=== PATIENT | female | born 2000 | race Caucasian/White ===

== ENCOUNTER 2019-04-14 08:00 | Inpatient (IN) ==
[2019-04-14] MEDS ORDERED: Famotidine 20 MG/2 ML VIAL IVP PRN (08:23)
[2019-04-14] MEDS ORDERED: *HR* Nalbuphine 10 MG/ML AMPUL IVP PRN (08:23)
[2019-04-14] MEDS ORDERED: Metoclopramide 10 MG/2 ML VIAL IVP PRN (08:23)
[2019-04-14] MEDS ORDERED: Ondansetron 4 MG/2 ML VIAL IVP PRN (08:23)
[2019-04-14] MEDS ORDERED: Naloxone 0.4 MG/ML INJ IVP PRN (08:23)
[2019-04-14] MEDS ORDERED: Oxytocin 20 units/ LR 1000 mL 20 UNIT/1,000 ML BAG IVC SCH ×2 (08:30→21:03)
[2019-04-14 08:53] LABS: Basophils % 0.4 %; Eosinophils # 0.1 K/mcL (0.0-0.6); Eosinophils % 0.9 %; Hematocrit 36.8 % (35.3-44.9); Hemoglobin 12.5 g/dL (11.5-15.4); Immature Granulocytes % 0.4 % (0-4); Lymphocytes # 1.5 K/mcL (0.6-4.6); Lymphocytes % 26.8 %; Mean Corpuscular Hemoglobin 30.2 pg (28.0-33.3); Mean Corpuscular Volume 88.9 fL (83.0-100.0); Mean Platelet Volume 10.1 fL (9.4-12.4); Monocytes # 0.4 K/mcL (0.0-1.3); Monocytes % 7.5 %; Neutrophils # 3.6 K/mcL (1.6-8.9); Platelet Count 243 K/mcL (140-400); Red Blood Count 4.14 M/mcL (3.82-4.97); Red Cell Distribution Width 13.5 % (11.5-14.5); White Blood Count 5.6 K/mcL (4.3-11.1)
[2019-04-14] MEDS: Ringers Solution, Lactated 1,000 ML IVC SCH ×2 (09:10→12:49)
[2019-04-14] MEDS ORDERED: Epidural Premix (fent/bupiv) 110 ML EP ONE (12:26)
[2019-04-14] MEDS ORDERED: Epidural Premix (fent/bupiv) 110 ML EP SCH (12:30)
[2019-04-14] MEDS ORDERED: Acetaminophen 325 MG TABLET PO PRN (21:03)
[2019-04-14] MEDS ORDERED: Lanolin 7 G OINT...G. TP PRN (21:03)
[2019-04-14] MEDS ORDERED: *HR* HYDROcodone/Acet 5/325 mg TABLET PO PRN (21:03)
[2019-04-14] MEDS ORDERED: Benzocaine/Menthol 56 GM AEROSOL SPRAY TP PRN (21:03)
[2019-04-15 08:29] VITALS: BP 119/81
[2019-04-15] MEDS: Ibuprofen 600 MG TABLET PO PRN ×2 (08:35→15:33)
[2019-04-15] MEDS ORDERED: Prenatal Vit/FA 1 EACH TABLET PO SCH (09:00)
== END 2019-04-15 19:56 | disposition home or self-care (01) | DRG 807 ==
LOC: 1NENULAB 08:09 → 1NENUOBS 21:00
PROVIDERS: ADMIT Advanced Practice Midwife; ATTEND Advanced Practice Midwife